=== PATIENT | male | born 1970 | race Two or more races ===

== ENCOUNTER 2021-06-14 19:40 | Emergency (ER) | payer OTHER ==
[~2021-06-14] VITALS: Ht 170.2 cm; Wt 113.4 kg
[2021-06-14 20:01] VITALS: BP 133/77
== END 2021-06-15 02:56 | disposition left against medical advice (07) ==
LOC: ER 19:43
DX: R10.9 Unspecified abdominal pain (principal); Z53.21 Procedure and treatment not carried out due to patient leaving prior to being seen by health care provider